=== PATIENT | female | born 1965 | race Caucasian/White ===

== ENCOUNTER 2020-06-02 07:34 | Outpatient (CLI) | payer BC, SELFPAY ==
--- NOTE | ~2020-06-02 | MM_ITS ---
EXAMINATION: MM screening [facility] BI w tammy HISTORY: Screening mammogram TECHNIQUE: Craniocaudal and mediolateral oblique 3-D tomosynthesis images were obtained and synthetic 2-D images were generated. CAD analysis was submitted and interpreted. COMPARISON: 05/15/2019, 03/28/2018, 01/19/2015, 01/06/2015 BREAST PARENCHYMAL COMPOSITION: The breasts are heterogeneously dense, which may obscure small masses . FINDINGS: A left breast cyst continues to decrease in size. There is no evidence of suspicious mass, calcification, or architectural distortion to suggest malignancy in either breast. There has been no suspicious interval change. IMPRESSION: 1. No mammographic evidence of malignancy. 2. Recommend routine screening mammography in one year. BI-RADS Category 2: Benign finding(s). Reviewed, dictated and finalized at location A.
== END 2020-06-02 07:35 | disposition home or self-care (01) ==
LOC: ANHIMG 07:37
PROVIDERS: PCP Internal Medicine; Visit Provider Student in an Organized Health Care Education/Training Program
DX: Z12.31 Encounter for screening mammogram for malignant neoplasm of breast (principal)
CPT/HCPCS: 77063; 77067

== ENCOUNTER 2022-09-19 12:11 | Outpatient (CLI) | payer BC, SELFPAY ==
[2022-09-19 12:26] LABS: Basophils Absolute Auto 0.04 K/mm3 (0.00-0.10); Basophils Percent Auto 0.5 % (0.0-1.0); Eosinophils Absolute Auto 0.12 K/mm3 (0.02-0.50); Eosinophils Percent Auto 1.4 % (1.0-6.0); Hematocrit 39.6 % (35.0-49.0); Hemoglobin 13.2 g/dL (12.0-15.0); Immature Granulocyte Absolute 0.03 K/mm3 (0.00-0.00); Immature Granulocyte Percent A 0.3 % (0.0-0.0); Lymphocytes Absolute Auto 2.34 K/mm3 (1.10-4.50); Lymphocytes Percent Auto 26.8 % (18.0-42.0); Mean Corpuscular HGB Conc 33.3 g/dL (32.0-36.0); Mean Corpuscular Hemoglobin 30.6 pg (27.0-31.0); Mean Corpuscular Volume 91.7 fL (78.0-102.0); Mean Platelet Volume 10.1 fl (9.2-11.8); Monocytes Absolute Auto 0.68 K/mm3 (0.10-0.90); Monocytes Percent Auto 7.8 % (2.0-11.0); Neutrophils Absolute Auto 5.5 K/mm3 (1.7-7.2); Neutrophils Percent Auto 63.2 % (50.0-70.0); Platelet Count Result 227 K/mm3 (150-420); Red Blood Count 4.32 M/mm3 (4.20-5.40); Red Cell Distribution Width 12.1 % (11.6-14.4); White Blood Count 8.7 K/mm3 (4.8-10.8)
[2022-09-19 13:10] LABS: Alanine Aminotransferase 27 U/L (14-59); Albumin Level 3.9 g/dL (3.4-5.0); Alkaline Phosphatase 83 U/L (46-116); Anion Gap 7 mmol/L (8-16); Aspartate Amino Transferase 17 U/L (15-37); Bilirubin,Total 0.2 mg/dL (0.00-1.00); Blood Urea Nitrogen 17 mg/dL (7-18); CRP < 0.5 mg/dL (0.0-0.9); Calcium 9.1 mg/dL (8.5-10.1); Carbon Dioxide 30 mmol/L (21-32); Chloride 104 mmol/L (98-108); Estimated Glomerular Filt Rate 57; Glucose 92 mg/dL (70-99); Osmolality Calculated 293 mOsm/kg (285-295); Sodium 141 mmol/L (136-145); Thyroid Stimulating Hormone 1.18 uIU/mL (0.36-3.74); Total Protein 7.4 g/dL (6.4-8.2)
== END 2022-09-19 12:12 | disposition home or self-care (01) ==
LOC: CHSLAB 12:15
PROVIDERS: PCP Internal Medicine; Visit Provider Internal Medicine
DX: E06.3 Autoimmune thyroiditis (principal); E03.9 Hypothyroidism, unspecified
CPT/HCPCS: 36415; 80053; 84443; 85025; 86140

== ENCOUNTER 2022-09-21 12:23 | Outpatient (CLI) | payer BC, SELFPAY ==
--- NOTE | ~2022-09-21 | MM_ITS ---
EXAMINATION: MM screening [facility] BI w tammy HISTORY: Screening TECHNIQUE: Craniocaudal and mediolateral oblique 3-D tomosynthesis images were obtained and synthetic 2-D images were generated. CAD analysis was submitted and interpreted. COMPARISON: Comparison to multiple prior studies sequentially, with oldest reviewed study dated 08/06. BREAST PARENCHYMAL COMPOSITION: The breasts are heterogeneously dense, which may obscure small masses FINDINGS: There are developing bilateral breast asymmetries in the lower inner quadrant of the right breast and these central aspect of the left breast. IMPRESSION: 1. Developing bilateral breast asymmetries. 2. Additional mammographic views and possible breast ultrasound are recommended. BI-RADS Category 0: Incomplete: Needs additional imaging evaluation. Reviewed, dictated and finalized at location A. TY COUNSELOR IMPRESSION: 1. Developing bilateral breast asymmetries. 2. Additional mammographic views and possible breast ultrasound are recommended . BI-RADS Category 0: Incomplete: Needs additional imaging evaluation.
--- NOTE | ~2022-09-21 | DEXA_ITS ---
Bone Density Report Name: VANDANA COOMBS Age: 57 Sex: Female Ethnicity: White Date of : 1965 Indication: postmenopausal; screening for osteoporosis; Referring Provider: REBA CARPENTER Study: Bone densitometry was performed. Exam Date: September 21, 2022 Accession number: [id number] Bone Density: Region BMD T-score Z-score Classification AP Spine(L1-L4) 1.116 0.6 2.0 Normal Femoral Neck (Left) 0.823 -0.2 1.0 Normal Total Hip (Left) 0.976 0.3 1.2 Normal Femoral Neck (Right) 0.895 0.4 1.7 Normal Total Hip (Right) 1.016 0.6 1.5 Normal Total Hip Mean 0.996 0.5 1.4 Normal World Health Organization criteria for BMD impression classify patients as: Normal (T-score at or above -1.0), Osteopenia (T-score between -1.0 and -2.5), or Osteoporosis (T-score at or below -2.5). 10-year Fracture Risk: FRAX not reported because: All T-scores for Spine Total, Hip Total, Femoral Neck at or above -1.0 Clinical Information Provided by Patient: Has used the following medications: Vitamin D Patient maximum height was 64 Menopause Age: 50 No regular weight bearing exercise Drinks caffeinated beverages Onset of menses at age 11 Number of children 2 Impression: The patient has normal bone mass. Discussion: BONE DENSITY IS ABOVE THE MINIMUM DESIRABLE LEVEL AT ALL SKELETAL SITES TESTED. This patient?s bone mineral density is above the minimum desirable level (T-score -1.0 or better) at all sites measured. The patient should follow a healthful lifestyle (good nutrition with adequate calcium and vitamin D, and appropriate weight-bearing exercise). Follow-Up: Consider repeating this study in 5 years or sooner if there is some new clinical indication. Reported by: RONALD on 09/21/2022 12:52:00 PM. Reviewed, dictated and finalized at location [facility]
== END 2022-09-21 12:24 | disposition home or self-care (01) ==
PROVIDERS: PCP Internal Medicine; Visit Provider Student in an Organized Health Care Education/Training Program
DX: Z78.0 Asymptomatic menopausal state (principal); Z12.31 Encounter for screening mammogram for malignant neoplasm of breast; R92.8 Other abnormal and inconclusive findings on diagnostic imaging of breast
CPT/HCPCS: 77063; 77067; 77080

== ENCOUNTER 2022-10-16 12:18 | Outpatient (CLI) | payer BC, SELFPAY ==
--- NOTE | ~2022-10-16 | MMUS_ITS ---
EXAMINATION: MM diagnostic boom BI w tammy, US breast BI complete HISTORY: Developing bilateral breast asymmetries (lower inner right breast and central left breast) w ere reported on 09/21/2022 screening mammogram TECHNIQUE: Additional 3-D tomosynthesis images of both breasts were performed and synthetic 2-D image s were generated. CAD analysis was submitted and interpreted. High resolution complete bilateral abundio st ultrasound examination including all 4 quadrants and subareolar areas was performed. COMPARISON: 09/21/2022 bilateral screening mammogram BREAST PARENCHYMAL COMPOSITION: The breasts are heterogeneously dense, which may obscure small masses . FINDINGS: MAMMOGRAPHIC FINDINGS: Biopsy marker on each side. History of prior bilateral benign stereotactic breast biopsies. Scattered bilateral benign calcifications. No suspicious mass or architectural distortion is detected mammographically. ULTRASOUND: Right breast: 9:00 3 cm from nipple: Parallel circumscribed 3.2 x 6.4 x 5.0 mm mixed cystic and solid lesion withou t internal vascularity or posterior shadowing, most likely benign Left breast: 2:00 4 cm from nipple: Approximately 8.1 x 9.9 x 7.6 mm hypoechoic lesion without sharply defined mar gins. No internal vascularity is noted. No posterior features are evident. I would recommend ultrasou nd-guided biopsy of this lesion; this is not completely aspirate, then ultrasound-guided biopsy shoul d be performed at that time. IMPRESSION: 1. 9.9 mm hypoechoic incompletely circumscribed mass of left breast at 2:00 4 cm from nipple 2. Ultrasound-guided aspiration attempt should be made at the left breast 2:00 lesion 4 cm from nippl e; if this does not completely aspirate, then immediate ultrasound-guided biopsy is recommended BI-RADS Category 4: Suspicious abnormality Dr. Cadet telephoned the report and ultrasound-guided aspiration and possible biopsy recommendation of left breast 2:00 lesion on 10/16/2022 [address] Kam's nurse Jose. Reviewed, dictated and finalized at location A. GER ORANGE IMPRESSION: 1. 9.9 mm hypoechoic incompletely circumscribed mass of left breast at 2:00 4 c m from nipple 2. Ultrasound-guided aspiration attempt should be made at the left breast 2:00 lesion 4 cm from nipple; if this does not completely aspirate, then immediate u ltrasound-guided biopsy is recommended BI-RADS Category 4: Suspicious abnormality Dr. Cadet telephoned the report and ultrasound-guided aspiration and possible bi opsy recommendation of left breast 2:00 lesion on 10/16/2022 [address] Gilda Kam's nurse Jose.
--- NOTE | ~2022-10-16 | US_ITS ---
EXAMINATION: US thyroid DATE: 10/16/2022 15:03 INDICATION: Hypothyroidism. TECHNIQUE: Multiple ultrasound images of the thyroid were obtained. COMPARISON: Ultrasound 10/28/2007 FINDINGS: The right thyroid lobe measures 3.1 x 1.4 x 0.9 cm. The left thyroid lobe measures 3.7 x 1.3 x 1.2 c m. The thyroid demonstrates coarsened echotexture and hypoechogenicity. No discrete nodule. Vascular ity is increased. IMPRESSION: 1. Heterogeneous, hypervascular thyroid, likely chronic lymphocytic (Ev[place]ne) thyroiditis. Reviewed, dictated and finalized at location A. HOME HEALTH
== END 2022-10-16 12:19 | disposition home or self-care (01) ==
PROVIDERS: PCP Internal Medicine; Visit Provider Student in an Organized Health Care Education/Training Program
DX: R92.8 Other abnormal and inconclusive findings on diagnostic imaging of breast (principal)
CPT/HCPCS: 76536; 76641; 77062; 77066; G0279

== ENCOUNTER 2024-02-10 15:56 | Emergency (ER) | payer BC, SELFPAY ==
[2024-02-10] VITALS (12 sets, daily range): BP systolic 135–148; BP diastolic 78–94; PULSE 84–107; RESP 15–18; TEMP 36.2–36.6; O2SAT 95–100
--- NOTE | ~2024-02-10 | CT_ITS ---
EXAMINATION: CT abdomen pelvis w con DATE: 02/10/2024 17:20 INDICATION: rebound LLQ pain TECHNIQUE: Computed tomography (CT) of the abdomen and pelvis was performed with 100 mL Omnipaque-350 intravenous contrast. Automated exposure control and iterative reconstruction technique were employe d. The dose-length product was 496.35 mGy-cm. COMPARISON: 04/10/2015. FINDINGS: Lower thorax: Unremarkable Liver: Normal. Biliary/Gallbladder: Gallbladder is normal. No bile duct dilation. Pancreas: No mass or duct dilation. Spleen: Subcentimeter linear defects in the superior aspect of the spleen with a 6 mm thick subcapsul ar fluid collection that compresses the adjacent parenchyma, covering approximately 40% of the spleen , all are new findings since the prior study. Adrenals:No mass. Kidneys: No suspicious mass, obstructing stone, or hydronephrosis. GI tract: Small hiatal hernia. Moderate distal esophageal and gastric wall edema. No small or large b owel dilation. Normal appendix. Moderate diverticulitis. Short segment wall thickening of the descend ing colon with an inflamed diverticulum. No abscess or free air. Fat stranding involving the left pso as muscle and minimal presumably reactive fluid in the left paracolic gutter. Mesentery/Peritoneum: No ascites, mass, or free air. Retroperitoneum: No mass. Atherosclerotic abdominal aortic and/or arterial calcifications. Pelvis: Pelvic organs are within normal limits. Soft Tissues: Soft tissues and body wall unremarkable. Bones: No acute osseous finding. IMPRESSION: Findings suspicious for shallow splenic lacerations with subcapsular hematoma (overall AAST grade 3). Correlate for any history of recent overt or trivial trauma and left upper quadrant pain. Acute uncomplicated diverticulitis in the descending colon. Results reported telephonically to Dr. Nina by Dr. Atkins at 5:53 PM on 02/10/2024. Reviewed, dictated and finalized at location K. IMPRESSION: Findings suspicious for shallow splenic lacerations with subcapsular hematoma ( overall AAST grade 3). Correlate for any history of recent overt or trivial tra pawel and left upper quadrant pain. Acute uncomplicated diverticulitis in the descending colon. Results reported telephonically to Dr. Nina by Dr. Atkins at 5:53 PM on 02/09.
--- NOTE | 2024-02-10 15:59 | ED.ABDPAIN ---
HPI - Abdominal Pain General Chief Complaint: Abdominal Pain Stated Complaint: abdominal pain Time Seen by Provider: 02/10/24 15:58 Source: patient Mode of arrival: ambulatory Limitations: no limitations History of Present Illness HPI narrative: Patient is a 58-year-old female with left lower quadrant abdominal pain for the past 2 days. She rates the pain 10/10. It is left lower quadrant. She has had it hurts if you push down and let go. She was seeing her primary doctor today and they sent her to the ER for abdominal pain workup. She has had prior perforations of the abdomen/ bowel as well as recurrent diverticulitis. MD elicited complaint: abdominal pain Pertinent past history: diverticulitis ( Diverticular perforation/micro perforations) Onset (ago): day(s) (2) Pain Consistency: constant Location: LLQ Severity: severe Pain scale (0-10): 10 Quality: cramping, aching and sharp Radiation: none Migration to: no migration Exacerbating factors: nothing Relieving factors: nothing Associated symptoms: nausea Related Data Home Medications Medication Instructions Recorded Confirmed levothyroxine 100 mcg capsule 100 mcg PO DAILY 06/02/20 02/10/24 hyoscyamine sulfate 0.125 mg tablet 0.125 mg PO QID PRN Abdominal 06/22/21 02/10/24 Discomfort meloxicam 15 mg tablet 15 mg PO DAILY 06/22/21 02/10/24 cholecalciferol (vitamin D3) 25 25 mcg PO DAILY 07/16/22 02/10/24 mcg (1,000 unit) capsule magnesium 200 mg tablet 200 mg PO DAILY 07/16/22 02/10/24 Allergies Allergy/AdvReac Type Severity Reaction Status Date / Time metronidazole Allergy Unknown Nausea Verified 02/10/24 16:00 Review of Systems Review of Systems: All systems reviewed & are unremarkable except as noted in HPI and below Constitutional: Constitutional: Reports no additional constitutional complaints Eyes: Eyes: Reports no additional eye complaints ENT: Reports system reviewed and no additional complaints, except as documented Cardiovascular: Cardiovascular: Reports no additional cardiovascular complaints Respiratory: Respiratory: Reports no additional respiratory complaints Gastrointestinal: Gastrointestinal: Reports no additional gastrointestinal complaints Genitourinary: Genitourinary: Reports no additional female genitourinary complaints Musculoskeletal: Musculoskeletal: Reports no additional musculoskeletal complaints Integumentary/Breasts: Skin/Breast: Reports system reviewed and no additional complaints, except as docu Neurologic: Reports system reviewed and no additional complaints, except as documented Psychiatric: Psychiatric: Reports no additional psychiatric complaints Endocrine: Endocrine: Reports no additional endocrine complaints Hematologic/Lymphatic: Hematologic/Lymphatic: Reports no additional hematologic/lymphatic complaints Allergic/Immunologic: Allergic/Immunologic: Reports no additional allergic/immunologic complaints PMFSH Past Medical History Medical History Acid reflux Anxiety Diverticulosis Fibromyalgia History of vaginal delivery Hypothyroid Surgical History Surgical History H/O LEEP History of breast biopsy Family History Family History Father Diabetes mellitus Hypertension Cerebrovascular accident Sibling Diabetes mellitus Hypertension Other Carcinoma of colon Family history of malignant neoplasm of brain Family history of throat cancer Social History Social History Smoking status: Former smoker Second hand tobacco smoke exposure: No Smoking end date: 10/06/91 Alcohol intake: current Exam Const: General: healthy appearing Nutritional Appearance: well nourished Orientation/consciousness: patient oriented x3 HENMT: Head: normal to inspection Ears: exter
[2024-02-10] MEDS: SODIUM CHLORIDE 0.9% IV 1,000 ML 999 ML IV CONT (16:20)
[2024-02-10] MEDS: HYDROmorphone HCL INJ (*CRX) 2 MG/ML VIAL 0.5 MG IV PUSH ×2 (16:21→17:33)
[2024-02-10 16:32] LABS: Basophils Absolute Auto 0.04 K/mm3 (0.00-0.10); Basophils Percent Auto 0.3 % (0.0-1.0); Eosinophils Absolute Auto 0.04 K/mm3 (0.02-0.50); Eosinophils Percent Auto 0.3 % (1.0-6.0); Hematocrit 38.3 % (35.0-49.0); Hemoglobin 12.3 g/dL (12.0-15.0); Immature Granulocyte Absolute 0.06 K/mm3 (0.00-0.00); Immature Granulocyte Percent A 0.4 % (0.0-0.0); Lymphocytes Absolute Auto 1.47 K/mm3 (1.10-4.50); Lymphocytes Percent Auto 10.1 % (18.0-42.0); Mean Corpuscular HGB Conc 32.1 g/dL (32-36); Mean Corpuscular Hemoglobin 29.6 pg (27.0-31.0); Mean Corpuscular Volume 92.3 fL (78.0-102.0); Mean Platelet Volume 10.1 fl (9.2-11.8); Monocytes Percent Auto 9.6 % (2.0-11.0); Neutrophils Absolute Auto 11.58 K/mm3 (1.70-7.20); Neutrophils Percent Auto 79.3 % (50.0-70.0); Platelet Count Result 220 K/mm3 (150-420); Red Blood Count 4.15 M/mm3 (4.20-5.40); Red Cell Distribution Width 12.6 % (11.6-14.4); White Blood Count 14.6 K/mm3 (4.8-10.8)
[2024-02-10 16:47] LABS: Alanine Aminotransferase 19 U/L (14-59); Albumin Level 3.3 g/dL (3.4-5.0); Alkaline Phosphatase 71 U/L (46-116); Anion Gap 9 mmol/L (4-12); Aspartate Amino Transferase 16 U/L (15-37); Bilirubin,Total 0.6 mg/dL (0.00-1.00); Blood Urea Nitrogen 10 mg/dL (7-18); Carbon Dioxide 30 mmol/L (21-32); Chloride 100 mmol/L (98-108); Estimated CRCL calculation 44 ml/min; Estimated Glomerular Filt Rate 54; Glucose 109 mg/dL (70-99); Lipase 22 U/L (16-77); Osmolality Calculated 288 mOsm/kg (285-295); Partial Thromboplastin Time 30.7 Sec (23.9-30.70); Potassium 3.7 mmol/L (3.5-5.1); Prothrombin Time 10.7 Seconds (9.50-12.1); Sodium 139 mmol/L (136-145); Total Protein 7.3 g/dL (6.4-8.2)
[2024-02-10 17:44] LABS: Appearance Urine Clear (Clear); Bilirubin Urine Negative (Negative); Blood Urine Negative (Negative); Color Urine Yellow (Yellow); Glucose Urine UA Negative (Negative); Ketones Urine 1+ (Negative); Leukocyte Esterase Ur Negative LEU/UL (Negative); Nitrate Urine Negative (Negative); Protein Urine Negative (Negative); Specific Grav Ur <= 1.005 (1.010-1.020); Urobilinogen Urine 0.2 mg/dL (0.2-1.0)
[2024-02-10 17:49] LABS: Add Urine Microscopic? YES; Bacteria Urine Trace /hpf; RBC Urine 0-2 /hpf (0-2); Squamous Epithelial Cell Urine Rare /hpf (Few); WBC Urine 0-3 /hpf (0-3)
[2024-02-10] MEDS: PIPERACILLN/TAZ 3.375GM/NS50ML 3.375 GM/50 ML BAG IVPB (18:27)
--- NOTE | 2024-02-16 16:51 | PC.NURSE ---
02/16/24 FINAL BLOOD CULTURE NO GROWTH AFTER 5 DAYS
== END 2024-02-10 21:10 | disposition short-term general hospital (02) ==
PROVIDERS: Emergency Provider Emergency Medicine; PCP Internal Medicine
DX: K57.92 Diverticulitis of intestine, part unspecified, without perforation or abscess without bleeding (principal); S36.029A Unspecified contusion of spleen, initial encounter; E03.9 Hypothyroidism, unspecified; K21.9 Gastro-esophageal reflux disease without esophagitis; Z87.891 Personal history of nicotine dependence
CPT/HCPCS: 36415; 74177; 80053; 81001; 83605; 83690; 85025; 85610; 85730; 87040; 96361; 96365; 96375; 96376; 99285; J1170; J2543; J7030; Q9967

== ENCOUNTER 2024-02-20 17:29 | Outpatient (CLI) | payer BC, SELFPAY ==
[2024-02-20 17:45] LABS: Basophils Absolute Auto 0.04 K/mm3 (0.00-0.10); Basophils Percent Auto 0.4 % (0.0-1.0); Eosinophils Absolute Auto 0.14 K/mm3 (0.02-0.50); Eosinophils Percent Auto 1.4 % (1.0-6.0); Hematocrit 37.5 % (35.0-49.0); Hemoglobin 12.1 g/dL (12.0-15.0); Immature Granulocyte Absolute 0.05 K/mm3 (0.00-0.00); Immature Granulocyte Percent A 0.5 % (0.0-0.0); Lymphocytes Absolute Auto 3.13 K/mm3 (1.10-4.50); Mean Corpuscular HGB Conc 32.3 g/dL (32-36); Mean Corpuscular Hemoglobin 29.2 pg (27.0-31.0); Mean Corpuscular Volume 90.6 fL (78.0-102.0); Mean Platelet Volume 8.8 fl (9.2-11.8); Monocytes Absolute Auto 0.82 K/mm3 (0.10-0.90); Monocytes Percent Auto 8.1 % (2.0-11.0); Neutrophils Absolute Auto 5.93 K/mm3 (1.70-7.20); Neutrophils Percent Auto 58.6 % (50.0-70.0); Platelet Count Result 329 K/mm3 (150-420); Red Blood Count 4.14 M/mm3 (4.20-5.40); Red Cell Distribution Width 12.1 % (11.6-14.4); White Blood Count 10.1 K/mm3 (4.8-10.8)
[2024-02-20 18:41] LABS: Alanine Aminotransferase 26 U/L (14-59); Albumin Level 3.5 g/dL (3.4-5.0); Alkaline Phosphatase 62 U/L (46-116); Anion Gap 7 mmol/L (4-12); Aspartate Amino Transferase 19 U/L (15-37); Bilirubin,Total 0.3 mg/dL (0.00-1.00); Blood Urea Nitrogen 18 mg/dL (7-18); Calcium 9.3 mg/dL (8.5-10.1); Carbon Dioxide 32 mmol/L (21-32); Chloride 99 mmol/L (98-108); Estimated Glomerular Filt Rate 47; Glucose 83 mg/dL (70-99); Osmolality Calculated 286 mOsm/kg (285-295); Potassium 4.4 mmol/L (3.5-5.1); Sodium 138 mmol/L (136-145); Total Protein 7.1 g/dL (6.4-8.2)
== END 2024-02-20 17:30 | disposition home or self-care (01) ==
LOC: CHSLAB 17:33
PROVIDERS: PCP Internal Medicine; Visit Provider Internal Medicine
DX: K57.92 Diverticulitis of intestine, part unspecified, without perforation or abscess without bleeding (principal)
CPT/HCPCS: 36415; 80053; 85025

== ENCOUNTER 2024-04-12 07:06 | Outpatient (CLI) | payer BC, SELFPAY ==
--- NOTE | ~2024-04-12 | US_ITS ---
Limited Abdominal Sonogram: Real-time sonographic imaging of the left upper quadrant was performed. Clinical History: Perisplenic hematoma Findings: Spleen is normal in size. Probable 2.0 x 1.4 x 0.9 cm focal perisplenic hematoma/collection . Left kidney measures 10.4 cm in length, without hydronephrosis or renal stone. No renal mass seen.. Impression: Probable small residual perisplenic hematoma, as above. Reviewed, dictated and finalized at location . Impression: Probable small residual perisplenic hematoma, as above.
== END 2024-04-12 07:07 | disposition home or self-care (01) ==
LOC: CHSIMG 07:09
PROVIDERS: PCP Internal Medicine; Visit Provider Internal Medicine
DX: S36.029A Unspecified contusion of spleen, initial encounter (principal)
CPT/HCPCS: 76705

== ENCOUNTER 2024-05-17 07:17 | Outpatient (CLI) | payer BC, SELFPAY ==
--- NOTE | ~2024-05-17 | US_ITS ---
EXAMINATION: US abdomen limited DATE: 05/17/2024 07:44 INDICATION: Perisplenic hematoma. TECHNIQUE: Multiple grayscale and Doppler ultrasound images of the abdomen were obtained. COMPARISON: Ultrasound 04/12/2024, CT 02/10/2024 FINDINGS: There is a small chronic subcapsular hematoma of the spleen. The spleen is normal in size. IMPRESSION: 1. Stable small chronic subcapsular hematoma of the spleen. Reviewed, dictated and finalized at location A.
== END 2024-05-17 07:18 | disposition home or self-care (01) ==
LOC: CHSIMG 07:20
PROVIDERS: PCP Internal Medicine; Visit Provider Internal Medicine
DX: S36.029A Unspecified contusion of spleen, initial encounter (principal)
CPT/HCPCS: 76705

== ENCOUNTER 2024-07-05 15:47 | Outpatient (CLI) | payer BC, SELFPAY ==
--- NOTE | ~2024-07-05 | XR_ITS ---
EXAMINATION: XR chest 2V Exam Date/Time: 07/05/2024 16:20 CDT HISTORY: Pre Op hemicolectomy under [place], history diverticulitis, history of splenic hematoma Comparison: Ultrasound abdomen 05/17/2024; CT abdomen pelvis 02/10/2024. RESULT: Lines, tubes, and devices: Biopsy marker in the right breast. Lungs and pleura: Clear. Cardiomediastinal silhouette: Stable. Other: No acute osseous or upper abdominal finding. IMPRESSION: No acute cardiopulmonary process. Reviewed, dictated and finalized at location K.
--- NOTE | 2024-07-05 16:09 | ECG_ITS ---
Test Date: 2024-07-05 16:19:51 Measurements Intervals [place] Rate: 82 P: -20 WA: 165 QRS: 40 QRSD: 93 T: 51 QT: 379 QTc: 444 Interpretive Statements SINUS RHYTHM INCOMPLETE RIGHT BUNDLE BRANCH BLOCK BASELINE ARTIFACT- II, III, V2 BORDERLINE ECG No previous ECG available for comparison Electronically Signed On 07-05-2024 16:44:25 CDT by Jordan Hyde D.O.
[2024-07-05 16:14] LABS: Mean Corpuscular HGB Conc 33.3 g/dL (32-36); Mean Corpuscular Volume 89.9 fL (78.0-102.0); Mean Platelet Volume 10.2 fl (9.2-11.8); Platelet Count Result 237 K/mm3 (150-420); Red Blood Count 4.34 M/mm3 (4.20-5.40); Red Cell Distribution Width 12.4 % (11.6-14.4); White Blood Count 8.4 K/mm3 (4.8-10.8)
[2024-07-05 16:16] LABS: Add Urine Microscopic? YES; Appearance Urine Clear (Clear); Bilirubin Urine Negative (Negative); Blood Urine Negative (Negative); Color Urine Light Yellow (Yellow); Glucose Urine UA Negative (Negative); Ketones Urine Negative (Negative); Leukocyte Esterase Ur Trace LEU/UL (Negative); Nitrate Urine Negative (Negative); Protein Urine Negative (Negative); Specific Grav Ur >= 1.030 (1.010-1.020); Urobilinogen Urine 0.2 mg/dL (0.2-1.0); pH Urine 5.5 (5.0-8.0)
[2024-07-05 16:20] LABS: Bacteria Urine Trace /hpf; RBC Urine None seen /hpf (0-2); Squamous Epithelial Cell Urine Few /hpf (Few); WBC Urine None seen /hpf (0-3)
[2024-07-05 16:27] LABS: INR 0.9; Partial Thromboplastin Time 27.4 Sec (23.9-30.70); Prothrombin Time 9.6 Seconds (9.50-12.1)
[2024-07-05 16:53] LABS: Alanine Aminotransferase 28 U/L (14-59); Albumin Level 3.5 g/dL (3.4-5.0); Alkaline Phosphatase 88 U/L (46-116); Anion Gap 9 mmol/L (4-12); Aspartate Amino Transferase 20 U/L (15-37); Bilirubin,Total 0.2 mg/dL (0.00-1.00); Blood Urea Nitrogen 23 mg/dL (7-18); Carbon Dioxide 29 mmol/L (21-32); Chloride 104 mmol/L (98-108); Estimated Glomerular Filt Rate 56; Glucose 109 mg/dL (70-99); Osmolality Calculated 298 mOsm/kg (285-295); Sodium 142 mmol/L (136-145); Thyroid Stimulating Hormone 0.35 uIU/mL (0.36-3.74); Total Protein 6.9 g/dL (6.4-8.2)
== END 2024-07-05 15:48 | disposition home or self-care (01) ==
LOC: CHSLAB 15:53
PROVIDERS: PCP Internal Medicine; Visit Provider Internal Medicine
DX: Z01.818 Encounter for other preprocedural examination (principal); I45.10 Unspecified right bundle-branch block
CPT/HCPCS: 36415; 71046; 80053; 81001; 84443; 85027; 85610; 85730; 93005